=== PATIENT | female | born 1990 | race Two or more races ===

== ENCOUNTER 2016-10-23 16:47 | Emergency (ER) | payer OTHER ==
[2016-10-23 16:51] VITALS: BMI 34.5
--- NOTE | 2016-10-23 17:17 | PDOC ---
*Physical Exam - Vital Signs Last Vital Signs Temp Pulse Resp BP Pulse Ox 90 18 150/85 99 10/23/16 16:49 10/23/16 16:49 10/23/16 16:49 10/23/16 16:49 ED Treatment Course - LABORATORY CBC & Chemistry Diagram: 10/23/16 18:00 Medical Decision Making - Medical Decision Making 10/23/16 17:17 Case discussed with DIALYSIS TECHNICIAN. Plan as per NURIA Schultz *DC/Admit/Observation/Transfer Diagnosis at time of Disposition: Ectopic - Discharge Dispostion Disposition: TRANSFER ACUTE CARE/OTHER HOSP - Referrals Referrals: Bernabe Phipps MD [Primary Care Provider] - - Patient Instructions Printed Discharge Instructions: DI for Ectopic , Methotrexate Injection Additional Instructions: Follow up with your UNDERCOVER COP in 4 days to have your HCG levels rechecked. If you can not get in to see your UNDERCOVER COP or have blood work done, return to the emergency department for evaluation. This is important and could lead to treatment failure if you do not follow these directions. Any other complaints return to the ED. Print Language: SINGAPOREAN - Post Discharge Activity Work/School Note: Back to Work
[2016-10-23 18:22] LABS: BASOPHIL 0.5 % (0-2.0); EOSINOPHIL 1.1 % (0-4.5); MCH 31.3 pg (25.7-33.7); MCHC 34.4 g/dl (32.0-36.0); MEAN CELL VOLUME 90.9 fl (80-96); MEAN PLT VOLUME 8.4 fl (7.5-11.1); NEUTROPHILS 69.5 % (42.8-82.8); PLATELET COUNT 335 K/MM3 (134-434); RDW 13.7 % (11.6-15.6)
--- NOTE | 2016-10-23 18:24 | PDOC ---
History of Present Illness - General History Source: Patient Exam Limitations: No Limitations - History of Present Illness Travel History: No Initial Comments: 10/23/16 17:19 26-year-old female approximately 6 weeks presents with left adnexal pain associated with vaginal bleeding for the past few days. Patient was seen by her ENTERPRISE SECURITY ARCHITECT at [facility] and had a left cystic mass in her left ovary and a beta count of 5000 which did increase from 4900 last week. Patient sent here for methotrexate secondary to a likely ectopic. Patient denies nausea, vomiting, fever, radiation of pain, weakness, or dizziness. Timing/Duration: reports: constant Quality: reports: moderate, cramping Abdominal Pain Onset Location: reports: suprapubic (left) Pain Radiation: reports: no radiation Aggravating Factors: improves with: None Alleviating Factors: improves with: None <Kaur Schultz - Last Filed: 10/23/16 18:19> <Kimberley Segovia - Last Filed: 10/23/16 20:48> - General Chief Complaint: Vaginal Bleeding Stated Complaint: vaginal bleeding Time Seen by Provider: 10/23/16 16:58 Past History - Past Medical History Other medical history: none - Reproductive History Is Patient Now?: Yes Para: 2 Ectopic : No - Psycho/Social/Smoking Cessation Hx Suicidal Ideation: No Smoking History: Never smoked Information on smoking cessation initiated: No Hx Alcohol Use: No Drug/Substance Use Hx: No Substance Use Type: None Patient Lives Alone: No Lives with/in: spouse/SO <Kaur Schultz - Last Filed: 10/23/16 18:19> <Kimberley Segovia - Last Filed: 10/23/16 20:48> - Past Medical History Allergies/Adverse Reactions: Allergies Allergy/AdvReac Type Severity Reaction Status Date / Time morphine Allergy Verified 10/23/16 16:51 Home Medications: Ambulatory Orders Ibuprofen [Motrin -] 600 mg PO TID #21 tablet 03/15/14 Oxycodone HCl/Acetaminophen [Percocet 5-325 mg Tablet -] 1 - 2 tab PO Q6H #14 tablet 03/15/14 Review of Systems - Review of Systems Able to Perform ROS?: Yes Constitutional: No: Symptoms Reported HEENTM: No: Symptoms Reported Respiratory: No: Symptoms reported Cardiac (ROS): No: Symptoms Reported ABD/GI: Yes: Abdominal cramping : Yes: Discharge Musculoskeletal: No: Symptoms Reported Integumentary: No: Symptoms Reported Neurological: No: Symptoms reported Hematologic/Lymphatic: No: Symptoms Reported <Kaur Schultz - Last Filed: 10/23/16 18:19> *Physical Exam - Vital Signs Last Vital Signs Temp Pulse Resp BP Pulse Ox 90 18 150/85 99 10/23/16 16:49 10/23/16 16:49 10/23/16 16:49 10/23/16 16:49 - Physical Exam General Appearance: Yes: Nourished, Appropriately Dressed. No: Apparent Distress HEENT: positive: EOMI, ANUPAM. negative: Pale Conjunctivae Respiratory/Chest: positive: Lungs Clear, Normal Breath Sounds. negative: Respiratory Distress, Accessory Muscle Use Cardiovascular: positive: Regular Rhythm, Regular Rate. negative: Murmur Female Pelvic Exam: positive: vaginal bleeding (-external exam only. dark red blood noted on sanitary napkin) Gastrointestinal/Abdominal: positive: Soft, Tenderness (left suprapubic) Musculoskeletal: negative: CVA Tenderness Extremity: positive: Normal Capillary Refill Integumentary: positive: Normal Color, Warm, Moist Neurologic: positive: Motor Strength 5/5 (ambulatory) <Kaur Schultz - Last Filed: 10/23/16 18:19> - Vital Signs Last Vital Signs Temp Pulse Resp BP Pulse Ox 90 18 150/85 99 10/23/16 16:49 10/23/16 16:49 10/23/16 16:49 10/23/16 16:49 <Kimberley Segovia - Last Filed: 10/23/16 20:48> ED Treatment Course - LABORATORY CBC & Chemistry Diagram: 10/23/16 18:00 - RADIOLOGY Radiology Studies Ordered: Category Date Time Status <14WKS US [US] Stat Ultrasound 10/23/16 17:20 Ordered <Kaur Schultz - Last Filed: 10/23/16 18:19> - LABORATORY CBC & Chemistry Diagram: 10/23/16 18:00 - ADDITIONAL ORDERS Additional order review: Laboratory Results 10/23/16 18:00 Beta HCG, Quant 5309.0 10/23/16 18:00 RBC 4.14 MCV 90.9 MCHC 34.4 RDW 13.7 MPV 8.4 Neutrophils % 69.5 Lymphocytes % 23.7 Monocytes % 5.2 Eosinophils % 1.1 Basophils % 0.5 <Kimberley Segovia - Last Filed: 10/23/16 20:48> Progress Note - Progress Note Progress Note: Spoke with patient regarding the treatment of her condition with Methotrexate. Patient states she will be compliant and will f/u with ENTERPRISE SECURITY ARCHITECT or return here in 4 days to have her HCG levels checked. It was explained to patient that surgical treatment was the option in the past and that she can be treatment with Methotrexate under the condition she follows directions closely. Patient demonstrated and verbalized understanding by saying her health is very important. <Kimberley Segovia - Last Filed: 10/23/16 20:48> Medical Decision Making - Medical Decision Making 10/23/16 17:22 Patient sent over from woman to woman for evaluation of left ectopic and to receive methotrexate. I reviewed labs and ultrasound but will perform a type and screen and beta hCG, CBC, and ultrasound. No previous type and screen on file nor wasn't sent with patient. <Kaur Schultz - Last Filed: 10/23/16 18:19> *DC/Admit/Observation/Transfer <Kaur Schultz - Last Filed: 10/23/16 18:19> - Discharge Dispostion Admit: No <Kimberley Segovia - Last Filed: 10/23/16 20:48> Diagnosis at time of Disposition: Ectopic Qualifiers: Location of ectopic : ovarian Intrauterine status: without intrauterine Qualified Code(s): O00.20 - Ovarian without intrauterine - Discharge Dispostion Disposition: HOME Condition at time of disposition: Stable - Patient Instructions Printed Discharge Instructions: DI for Ectopic , Methotrexate Injection Additional Instructions: Follow up with your ENTERPRISE SECURITY ARCHITECT in 4 days to have your HCG levels rechecked. If you can not get in to see your ENTERPRISE SECURITY ARCHITECT or have blood work done, return to the emergency department for evaluation. This is important and could lead to treatment failure if you do not follow these directions. Any other complaints return to the ED. Print Language: GUAMANIAN - Post Discharge Activity Work/School Note: Back to Work
[2016-10-23] MEDS ORDERED: METHOTREXATE SODIUM/PF 25 MG/ML VIAL IM ONE ×2 (20:31→22:00)
[2016-10-23 22:35] VITALS: BP 145/78; PULSE 78
== END 2016-10-23 22:33 | disposition short-term general hospital (02) ==
LOC: JER 16:47
PROC: 3E023GC Introduction of Other Therapeutic Substance into Muscle, Percutaneous Approach (ICD-10-PCS; principal; 2016-10-23)
DX: O26.891 Other specified pregnancy related conditions, first trimester (principal); O00.20 Ovarian pregnancy without intrauterine pregnancy
CPT/HCPCS: 36415; 76801-TC; 84702; 85025; 86850; 86900; 86901; 99283-25; J9260

== ENCOUNTER 2016-10-27 19:11 | Emergency (ER) | payer OTHER ==
[2016-10-27 19:48] VITALS: BP 146/85; PULSE 86; TEMP 98.4; BMI 34.5
--- NOTE | 2016-10-27 23:06 | PDOC ---
History of Present Illness - General Chief Complaint: Revisit, Lab Variance Stated Complaint: REVISIT/LAB WORK Time Seen by Provider: 10/27/16 21:29 History Source: Patient Exam Limitations: No Limitations - History of Present Illness Initial Comments: 10/27/16 23:02 Return today for repeat BHCG post treatment for ectopic started on 10/23 in ED Associated Symptoms: denies: denies symptoms Past History - Past Medical History Allergies/Adverse Reactions: Allergies Allergy/AdvReac Type Severity Reaction Status Date / Time ibuprofen [From Motrin] Allergy Hives Verified 10/27/16 19:45 morphine Allergy Verified 10/27/16 19:45 Home Medications: Ambulatory Orders NK [No Known Home Medication] 10/23/16 - Reproductive History Para: 2 Ectopic : No - Immunization History Immunization Up to Date: Yes - Psycho/Social/Smoking Cessation Hx Suicidal Ideation: No Smoking History: Never smoked Hx Alcohol Use: No Drug/Substance Use Hx: No Substance Use Type: None Review of Systems - Review of Systems Constitutional: Yes: Symptoms Reported HEENTM: No: Symptoms Reported Respiratory: No: Cough : Yes: Other (vaginal bleeding with clots; no pain x 1 day) *Physical Exam - Vital Signs Last Vital Signs Temp Pulse Resp BP Pulse Ox 98.4 F 86 20 146/85 99 10/27/16 19:46 10/27/16 19:46 10/27/16 19:46 10/27/16 19:46 10/27/16 19:46 - Physical Exam General Appearance: Yes: Appropriately Dressed Respiratory/Chest: positive: Lungs Clear Medical Decision Making - Medical Decision Making 10/27/16 23:05 endorsed pt to RECEPTION CENTRE MANAGER Aneudy for follow up of BHCG and consult with CONDOMINIUM ASSOCIATION MANAGER post results *DC/Admit/Observation/Transfer Diagnosis at time of Disposition: Ectopic Qualifiers: Location of ectopic : unspecified location Intrauterine status: without intrauterine Qualified Code(s): O00.90 - Unspecified ectopic without intrauterine
--- NOTE | 2016-10-27 23:23 | PDOC ---
*Physical Exam - Vital Signs Last Vital Signs Temp Pulse Resp BP Pulse Ox 98.4 F 86 20 146/85 99 10/27/16 19:46 10/27/16 19:46 10/27/16 19:46 10/27/16 19:46 10/27/16 19:46 ED Treatment Course - ADDITIONAL ORDERS Additional order review: Laboratory Results 10/27/16 22:00 Beta HCG, Quant 4192.8 Medical Decision Making - Medical Decision Making 10/27/16 23:33 patient is without abdominal pain. beta hcg decreasing, patient has an appointment with optical goods drilling machine operator in 1 days. strict return precautions reviewed with patient *DC/Admit/Observation/Transfer Diagnosis at time of Disposition: Ectopic Qualifiers: Location of ectopic : unspecified location Intrauterine status: without intrauterine Qualified Code(s): O00.90 - Unspecified ectopic without intrauterine - Discharge Dispostion Disposition: HOME - Referrals Referrals: Bernabe Phipps MD [Primary Care Provider] - - Patient Instructions Printed Discharge Instructions: Ectopic Additional Instructions: please follow up with optical goods drilling machine operator in 1-2 days. return to the ER if you are having worsening abdominal pain or soaking through 2 pads per hour or worsening symptoms. - Post Discharge Activity Work/School Note: Back to Work
== END 2016-10-27 23:44 | disposition home or self-care (01) ==
LOC: JER 19:11 → JERFT 19:11
DX: O00.90 Unspecified ectopic pregnancy without intrauterine pregnancy (principal)
CPT/HCPCS: 36415; 84702; 99281-25

== ENCOUNTER 2017-01-01 05:16 | Day surgery (SDC) | payer OTHER ==
[2016-12-31 12:10] VITALS: BMI 33.6
--- NOTE | 2017-01-01 07:15 | HP ---
History & Physical Update - History History: No Change - Physical Physical: No Change - Assessment Assessment: No Change - Plan Plan: No Change (Pt with left pelvic pain, dilated fallopian tube on ultrasound - (hematosalpinx vs. hydrosalpinx) - for laparoscopic left salpingectomy)
[2017-01-01] MEDS ORDERED: ACETAMINOPHEN 325 MG TABLET (FP) PO PRN (07:57)
[2017-01-01] MEDS ORDERED: oxyCODONE HCL 5 MG TABLET PO PRN ×2 (07:57→10:14)
[2017-01-01] MEDS ORDERED: LACTATED RINGERS SOLUTION 1,000 ML IV SCH (08:00)
[2017-01-01] MEDS ORDERED: MIDAZOLAM HCL 2 MG/2 ML SINGLE DOSE VIAL ONE (08:03)
[2017-01-01] MEDS ORDERED: ROCURONIUM BROMIDE 50 MG/5 ML VIAL ONE (08:12)
[2017-01-01] MEDS ORDERED: PROPOFOL 20 ML ONE (08:13)
[2017-01-01] MEDS ORDERED: BUPIVACAINE HCL/PF 0.5% (5MG/ML) 10 ML VIAL ONE (08:19)
[2017-01-01] MEDS ORDERED: LIDOCAINE HCL/PF 2% SDV 5ML VIAL ONE (08:45)
[2017-01-01] MEDS ORDERED: GLYCOPYRROLATE 0.2 MG/1 ML VIAL ONE (08:45)
[2017-01-01] MEDS ORDERED: DEXAMETHASONE SOD PHOSPHATE 4 MG/1 ML VIAL ONE (08:45)
[2017-01-01] MEDS ORDERED: NEOSTIGMINE METHYLSULFATE 0.5 MG/ML - 10 ML MDV ONE (08:46)
[2017-01-01] MEDS ORDERED: BUPIVACAINE HCL/PF 0.5% (5MG/ML) 10 ML VIAL IJ ONE (09:10)
--- NOTE | 2017-01-01 09:12 | SURG ---
Surgery Lollypop Machine Operator Note Lollypop Machine Operator: Charles Davidson PA-C Date of Service: 01/01/17 Diagnosis: Left pelvic pain Procedure: Laparoscopic left salpingectomy, lysis of adhesions I was present for the entirety of the operative procedure. For further detail, please refer to operative report. Visit type - Case Type Case Type: Scheduled Admission - New patient This patient is new to me today: Yes Date on this admission: 01/01/17
[2017-01-01] MEDS ORDERED: ACETAMINOPHEN 1000 MG/100 ML VIAL (NON FORMULARY) IVPB ONE (09:24)
--- NOTE | 2017-01-01 09:36 | OP ---
Operative Note - Note: Operative Date: 01/01/17 Pre-Operative Diagnosis: left hematosalpinx, pelvic pain Operation: laparoscopic left salpingectomy, lysis of omental adhesions Findings: adhesions from omentum to anterior abdominal wall dilated and adhered left fallopian tube normal right fallopian tube normal ovaries bilaterally Surgeon: Rowan Tinoco Bakery Worker Conveyor Line: Charles Davidson Anesthesiologist/CAFE LEAD: Tita Reid MD Anesthesia: General Specimens Removed: left fallopian tube Estimated Blood Loss (mls): 10 Operative Report Dictated: Yes
[2017-01-01] MEDS ORDERED: ONDANSETRON 4 MG/2 ML VIAL IVPUSH PRN (10:14)
[2017-01-01] MEDS ORDERED: PROMETHAZINE HCL 25 MG/1 ML VIAL IVPUSH PRN (10:14)
[2017-01-01] MEDS ORDERED: traMADol HCL 50 MG TABLET PO ONE (11:22)
[2017-01-01 11:43] VITALS: TEMP 97.8
[2017-01-01 16:59] VITALS: BP 130/70; PULSE 90
--- NOTE | 2017-01-02 09:20 | OP ---
DATE OF OPERATION: 01/01/2017 PREOPERATIVE DIAGNOSIS: Left hematosalpinx and pelvic pain. POSTOPERATIVE DIAGNOSIS: Left hematosalpinx and pelvic pain, as well as adhesions from the omentum to the anterior abdominal wall. PROCEDURE: Laparoscopic left salpingectomy and lysis of omental adhesions. SURGEON: Rowan Tinoco MD SUPERVISOR SLEEPING BAG DEPARTMENT: KEM Atkins ESTIMATED BLOOD LOSS: 10 mL. SPECIMENS REMOVED: Include left fallopian tube. FINDINGS: Include adhesions from the anterior abdominal wall to the omentum and dilated left fallopian tube. Normal bilateral ovaries and normal right fallopian tube. BRIEF HISTORY AND PROCEDURE: Patient is a 26-year-old female who had been seen in the office with complaints of pelvic pain with a recent history of ectopic on the left side approximately 2 months prior. She was treated with methotrexate at that time and has suffered with chronic pelvic pain since then. The patient had an ultrasound in the office, and a dilated fallopian tube on the left side was appreciated. The patient was counseled on her options, and she elected to undergo diagnostic laparoscopy and possible left salpingectomy. She was counseled on her fertility, and that it might decrease with the removal of 1 fallopian tube. She agreed to the procedure. She was admitted to [facility] on outpatient procedure unit on January 01, 2017. Consents for the procedure, which had been signed in the office, were reconfirmed upon admission. She was then prepped and draped in the usual sterile fashion in the dorsal lithotomy position, and a hickman time-out was performed. A 5-mm skin incision was created in the umbilicus, and a Veress needle was placed intraabdominally. The abdomen was insufflated with CO2 gas. Then, the trocar was placed intraabdominally. The camera was then placed inside the abdomen, and after confirmation of intraabdominal placement, two bilateral lower quadrant ports were inserted, both 5 mm in size. Dense adhesions from the omentum to the anterior abdominal wall were noted in the midline. These were carefully dissected away from the anterior abdominal wall using the Harmonic device without difficulty. Next, attention was turned to the left fallopian tube, which was noted to be adhesed to the posterior uterus as well as to the ovary. It was very dilated and appeared to be full of blood as we suspected with a hematosalpinx. The fallopian tube was elevated, dissected off its attachment to the ovary, to the mesosalpinx, and to the uterus at this time. At this time, the right lower quadrant incision was extended to accommodate an EndoCatch bag. An 11-mm trocar was placed into the abdomen. The EndoCatch bag was placed in the abdomen, and the specimen was removed from the right lower quadrant port without difficulty. The Melo-Tabby device was used to close the right lower quadrant 10-mm port to ensure the fascia closure was completed. This was done without difficulty. Inspection of the surgical site revealed hemostasis. The pelvis was irrigated and suctioned. Appendix was noted to be within normal limits. No other intraabdominal pathology or abnormality was noted. At this time, all the instruments were removed from the abdomen. The abdomen was desufflated. The skin was reapproximated using Biosyn and skin glue, and the patient was awoken from anesthesia and recovered in stable condition at the time of this dictation. ROWAN TINOCO DO /[id number]
--- NOTE | 2017-01-02 15:06 | PATH ---
Surgical Pathology Report Patient Name: JARRELL MCKAY [facility]. Rec. #: [id number] /Age/Gender: 1990 (Age: 26) / F Account: [id number] Location: [facility] SURGICAL Taken: 01/01/2017 Received: 01/01/2017 Reported: 01/02/2017 Physicians: Rowan Tinoco M.D. Specimen(s) Received LEFT FALLOPIAN TUBE Clinical History Left hematosalpinx, pelvic pain Final Diagnosis LEFT FALLOPIAN TUBE, SALPINGECTOMY: BENIGN FALLOPIAN TUBE WITH HEMATOSALPINX, WITH SCANT DEGENERATING TISSUE MORPHOLOGICALLY CONSISTENT WITH CHORIONIC VILLI, INDICATIVE OF ECTOPIC (TUBAL) . ASSOCIATED HEMORRHAGE AND CHRONIC INFLAMMATION PRESENT. Electronically Signed Jerome Rosales M.D. Gross Description Received in formalin labeled "left fallopian tube," is a 5.5 cm in length dilated appearing, fimbriated portion of fallopian tube. There is a 1.5 cm in greatest dimension paratubal cyst attached which contains clear serous fluid. Sectioning reveals a dilated lumen focally containing red-brown blood clot. Locomotive Driver sections are submitted in 6 cassettes as follows: 1-fimbria; 2-3-cross sections of fallopian tube with attached paratubal cyst; 3-6-pzqqreqcli cross sections of fallopian tube. 01/01/201701/01/2017
== END 2017-01-01 14:15 | disposition home or self-care (01) ==
LOC: JASU-SURG 05:16
PROVIDERS: ATTEND Obstetrics & Gynecology
PROC: 0DNS4ZZ (ICD-10-PCS; 2017-01-01)
PROC: 0UT64ZZ Resection of Left Fallopian Tube, Percutaneous Endoscopic Approach (ICD-10-PCS; principal; 2017-01-01 08:00)
DX: N83.6 Hematosalpinx (principal); K66.0 Peritoneal adhesions (postprocedural) (postinfection)
CPT/HCPCS: 84703; 88305-TC; 94760

== ENCOUNTER 2024-11-20 02:01 | Emergency (ER) | payer OTHER ==
[2024-11-20 02:08] VITALS: BP 143/92; PULSE 89; RESP 18; TEMP 97.9; BMI 39.4
== END 2024-11-20 03:45 | disposition home or self-care (01) ==
LOC: JER 02:01
DX: S60.445A External constriction of left ring finger, initial encounter (principal); W49.04XA Ring or other jewelry causing external constriction, initial encounter
CPT/HCPCS: 99283-25